=== PATIENT | male | born 1980 | race Caucasian/White ===

== ENCOUNTER 2018-11-18 18:51 | Observation (INO) | payer BC ==
[2018-11-18] MEDS ORDERED: Lidocaine 1% 20 ML MDV ONE (19:06)
[2018-11-18] MEDS ORDERED: Ondansetron ODT 8 MG TAB ONE (19:12)
[2018-11-18] MEDS ORDERED: Bacitracin 1 PK ONE (19:13)
[2018-11-18 19:46] LABS: #Basophils 0.1 thou/uL (0.0-0.2); #Eosinphils 0.2 thou/uL (0.0-0.7); #Lymphocytes 2.1 thou/uL (1.20-3.40); #Monocytes 1.1 thou/uL (0.11-0.59); %Basophils 0.9 % (0.0-1.0); %Eosinophils 1.6 % (0.0-10.0); %Lymphocytes 22.2 % (21.0-51.0); %Monocytes 11.3 % (0.0-10.0); %Neutrophils 63.9 % (42.0-75.0); Hemoglobin 17.4 g/dL (14.0-18.0); Mean Corpuscular HGB CONC 32.1 g/dL (32.0-36.0); Mean Corpuscular Hemoglobin 30.9 pg (27.0-31.0); Mean Corpuscular Volume 96.1 fL (78.0-98.0); Mean Platelet Volume 7.7 fL (7.4-10.4); Platelet Count 234 thou/uL (130-400); RBC Distribution Width 14.2 % (11.5-14.5); Red Blood Cell (RBC) Count 5.65 mill/uL (4.70-6.10); White Blood Cell (WBC) Count 9.5 thou/uL (4.8-10.8)
[2018-11-18 20:01] LABS: ALT (SGPT) 31 U/L (8-55); AST (SGOT) 22 U/L (5-34); Alkaline Phosphatase 53 U/L (40-150); Anion Gap 16 mmol/L (10-20); BUN (Urea Nitrogen) 13 mg/dL (8.9-20.6); Bilirubin, Total 0.5 mg/dL (0.2-1.2); Calc. Creatinine Clearance 0 mL/min (70-130); Calcium 9.1 mg/dL (7.8-10.44); Carbon Dioxide 21 mmol/L (22-29); Chloride 105 mmol/L (98-107); Estimated GFR-MDRD 79; Globulin 3.7 g/dL (2.4-3.5); Glucose 99 mg/dL (70-105); Potassium 4.2 mmol/L (3.5-5.1); Protein, Total 7.7 g/dL (6.0-8.3); Sodium 138 mmol/L (136-145)
[2018-11-18] MEDS ORDERED: Ondansetron ODT 4 MG TAB SL PRN (21:34)
[2018-11-18] MEDS ORDERED: HYDROcodone/Acetaminophen 5/325 mg Tablet PO PRN (21:34)
[2018-11-18] MEDS ORDERED: Ondansetron PF 4 MG/2 ML Vial IVP PRN (21:34)
[2018-11-18] MEDS ORDERED: Acetaminophen 325 MG TAB PO PRN (21:34)
[2018-11-18] MEDS: HYDROcodone/Acetaminophen 5/325 mg Tablet PO PRN (21:46)
[2018-11-18 23:23] VITALS: BMI 40.7
--- NOTE | 2018-11-18 23:42 | PDOC.FPRHP ---
- History of Present Illness Chief Complaint: L thigh rash History of Present Illness: Patient is a 37M with PMHx of asthma, hypogonadism presenting as a transfer from [facility] with L thigh rash onset 11/17. Patient reports that on 11/17 he saw that he had a rash on his left thigh. He states that it began to become painful and warm today so he went to the ED. He was hospitalized in September 2018 at [facility] for L thigh cellulitis in the same location, and he was told that it was MRSA. He was discharged on a PO doxycycline prescription. He has had 2 other hospitalizations in his past for MRSA, one 10 years ago 2/2 folliculitis, and another November 2017 2/2 folliculitis on his right chest. He states that he trims his body hair neat but not to the skin. ED Course: At [facility] ED: -I&D with no drainage, bacitracin ointment and bandage, 1g vanc at 1950 11/18, and 8mg zofran - Allergies/Adverse Reactions Allergies Allergy/AdvReac Type Severity Reaction Status Date / Time No Known Drug Allergies Allergy Verified 11/19/18 00:59 - Home Medications Medication Instructions Recorded Confirmed Type Albuterol Sulfate [Proair 1 puff BID 11/19/18 11/19/18 History Respiclick] Budesonide-Formoterol [Symbicort 2 puff DAILY 11/19/18 11/19/18 History 160-4.5] FLUoxetine HCl [Prozac] 1 cap DAILY 11/19/18 11/19/18 History Testosterone Cypionate 100 mg IM Q14D 11/19/18 11/19/18 History clonazePAM [Klonopin] 1 mg PO DAILY 11/19/18 11/19/18 History - History PMHx:asthma, hypogonadism PSHx: R shoulder sx, R inguinal hernia repair FHx: mom: Lupus, RA, passed of staph infection complication during hospitalization ( age 58) dad: glioblastoma (passed age 62) Social: occasional cigar use, social drinker, former marijuana use years ago - Review of Systems General: denies: fever/chills, weight/appetite/sleep changes Eyes: denies: eye pain, vision changes ENT: denies: nasal congestion, rhinorrhea Respiratory: denies: cough, congestion, shortness of breath Cardiovascular: denies: chest pain, edema Gastrointestinal: reports: vomiting (vomited 1x yesterday, patient says 2/2 overheating and resolved with hydration). denies: nausea, diarrhea Genitourinary: denies: incontinence, dysuria Skin: reports: rashes (L thigh rash) Musculoskeletal: denies: stiffness, swelling Neurological: denies: syncope, seizure Psychological: reports: anxiety (sees therapist) - Vital signs BP: [128/86] HR: [95] RR: [16] Tmax: [99.2] Pox: [95]% on [RA] Wt: [111kg] - Physical Exam Constitutional: NAD, awake, alert and oriented, well developed HEENT: normocephalic and atraumatic, EOMI Neck: supple, trachea midline Chest: no-tender to palpation, no lesions Heart: RRR, normal S1/S2 Lungs: CTAB, no respiratory distress, good air movement Abdomen: soft, non-tender, bowel sounds present Musculoskeletal: normal structure, normal tone Neurological: no focal deficit, normal sensation Skin: good turgor, capillary refill <2 seconds, other (4x5in erythematous non- draining skin rash on medial L thigh) Heme/Lymphatic: no unusual bruising or bleeding, no purpura Psychiatric: normal mood and affect, good judgment and insight, intact recent and remote memory FMR H&P: Results - Labs Result Diagrams: 11/19/18 05:56 11/18/18 19:40 Lab results: WBC 9.5 thou/uL (4.8-10.8) 11/18/18 19:40 Hgb 17.4 g/dL (14.0-18.0) 11/18/18 19:40 Hct 54.3 % (42.0-52.0) H 11/18/18 19:40 MCV 96.1 fL (78.0-98.0) 11/18/18 19:40 Plt Count 234 thou/uL (130-400) 11/18/18 19:40 Neutrophils % 63.9 % (42.0-75.0) 11/18/18 19:40 Sodium 138 mmol/L (136-145) 11/18/18 19:40 Potassium 4.2 mmol/L (3.5-5.1) 11/18/18 19:40 Chloride 105 mmol/L (98-107) 11/18/18 19:40 Carbon Dioxide 21 mmol/L (22-29) L 11/18/18 19:40 BUN 13 mg/dL (8.9-20.6) 11/18/18 19:40 Creatinine 1.05 mg/dL (0.7-1.3) 11/18/18 19:40 Glucose 99 mg/dL (70-105) 11/18/18 19:40 Calcium 9.1 mg/dL (7.8-10.44) 11/18/18 19:40 Total Bilirubin 0.5 mg/dL (0.2-1.2) 11/18/18 19:40 AST 22 U/L (5-34) 11/18/18 19:40 ALT 31 U/L (8-55) 11/18/18 19:40 Alkaline Phosphatase 53 U/L (40-150) 11/18/18 19:40 Serum Total Protein 7.7 g/dL (6.0-8.3) 11/18/18 19:40 Albumin 4.0 g/dL (3.5-5.0) 11/18/18 19:40 FMR H&P: A/P - Problem List (1) Cellulitis of left thigh Current Visit: Yes Status: Acute Code(s): L03.116 - CELLULITIS OF LEFT LOWER LIMB (2) Asthma Current Visit: Yes Status: Acute Code(s): J45.909 - UNSPECIFIED ASTHMA, UNCOMPLICATED (3) Hypogonadism in male Current Visit: Yes Status: Acute Code(s): E29.1 - TESTICULAR HYPOFUNCTION - Plan 37M with PMHx of asthma, hypogonadism, and multiple MRSA infections presents with L medial thigh cellulitis #L medial thigh cellulitis -WBC 9.5, wnl, continue to monitor -vss, low suspicion for sepsis at this time -started on IV vanc at [facility], continue -monitor Vanc troughs -vanc pharmacy to dose -Encourage PO intake #Asthma -continue home meds #hypogonadism -patient can take home testosterone after being d/c from hospital DVT proph: lovenox GI proph: pepcid Diet: regular Dispo: obs for IV abx, possible d/c tmrw with PO doxycycline or similar Code Status: Full Code FMR H&P: Upper Level - Plan Date/Time: 11/18/18 7811 I, Saurabh Mercer MD, have evaluated this patient and agree with findings/plan as outlined by international account manager resident. Pertinent changes/additions are listed here. Terrell Burgos is a 37 year old M with a PMH of hyperparathyroidism, asthma, and hx of multiple MRSA skin infections requiring hospitalizations who was transferred to [facility] from outside ER with a 1-2 day history of left inner thigh redness and pain. Patient has been admitted to outside hospital at least 2 times in the past couple years, last in September for 4 days, for MRSA related skin infections. He wanted to make sure he gets treated before it gets as bad as it was in the past. In the outside ER, I&D was attempted over an area of minimal fluctuance and only a small amount of blood was expressed, no pus. He was given Vanc 1 g and 8 mg zofran in the ED. His vitals were stable in the ED and he shows no signs of sepsis. WBC count was 9.5 and remainder of CBC and CMP were otherwise negative. Patient is being placed on obs/medical unit for cellulitis tx. Will continue vancomycin and zeb borders of cellulitis to monitor for progression. Low suspicion for sepsis, abscess or nec fasciitis at this time. Will continue to monitor and consider imaging of wound if pt worsens clinically. Pain control. Please see international account manager for full H&P, which I have reviewed and agree with. Addendum - Attending - Attending Attestation Date/Time: 11/19/18 0700 I personally evaluated the patient and discussed the management with Dr. Mercer and team on 11/18. I agree with the History, Examination, Assessment and Plan documented above with any addition or exceptions noted below. Area of cellulitis left thigh with no fluctuance, TTP, warm/erythematous/ edematous. Agree with vancomycin and transition to PO in the AM. No s/s of sepsis.
[2018-11-19] MEDS ORDERED: Senokot S 8.6-50 MG TAB PO PRN (00:08)
[2018-11-19] MEDS ORDERED: Vancomycin HCl 1 GM in Premix Bag 1 BAG IVPB SCH (00:15)
[2018-11-19] MEDS ORDERED: traZODone HCl 50 MG TAB PO PRN (00:52)
[2018-11-19] MEDS: HYDROcodone/Acetaminophen 5/325 mg Tablet PO PRN (04:21)
[2018-11-19 06:18] LABS: #Basophils 0.1 thou/uL (0.0-0.2); #Eosinphils 0.2 thou/uL (0.0-0.7); #Lymphocytes 2.3 thou/uL (1.20-3.40); #Monocytes 1.3 thou/uL (0.11-0.59); #Neutrophils 5.6 thou/uL (1.40-6.50); %Basophils 0.5 % (0.0-1.0); %Eosinophils 1.9 % (0.0-10.0); %Lymphocytes 24.7 % (21.0-51.0); %Monocytes 13.6 % (0.0-10.0); %Neutrophils 59.3 % (42.0-75.0); Hemoglobin 16.1 g/dL (14.0-18.0); Mean Corpuscular Hemoglobin 32.3 pg (27.0-31.0); Mean Corpuscular Volume 97.9 fL (78.0-98.0); Mean Platelet Volume 7.7 fL (7.4-10.4); Platelet Count 200 thou/uL (130-400); RBC Distribution Width 13.8 % (11.5-14.5); Red Blood Cell (RBC) Count 4.98 mill/uL (4.70-6.10); White Blood Cell (WBC) Count 9.4 thou/uL (4.8-10.8)
--- NOTE | 2018-11-19 06:26 | PDOC.FM ---
- Subjective Subjective: Pt is doing well w/o complaints. He remains with pain over Left Medial thigh but believes it is improving. - Objective Vital Signs & Weight: Vital Signs (12 hours) Temp Pulse Resp BP BP Pulse Ox 11/19/18 04:05 97.9 F 85 18 118/79 94 L 11/19/18 00:08 98.0 F 11/18/18 21:36 99.2 F 85 18 128/86 95 11/18/18 21:30 99.2 F 85 18 128/86 95 Weight Weight 111 kg I&O: 11/17/18 11/18/18 11/19/18 06:59 06:59 06:59 Intake Total 190 Balance 190 Result Diagrams: 11/19/18 05:56 11/18/18 19:40 Phys Exam - Physical Examination Constitutional: NAD HEENT: PERRLA Neck: no JVD, full ROM Respiratory: clear to auscultation bilateral Cardiovascular: RRR, no significant murmur Gastrointestinal: soft, non-tender, no distention Musculoskeletal: no edema, pulses present Psychiatric: normal affect, A&O x 3 -: Lesion on L medial thigh remains erythematous approx baseball size in circ Dx/Plan (1) Anxiety Code(s): F41.9 - ANXIETY DISORDER, UNSPECIFIED Status: Acute (2) Asthma Code(s): J45.909 - UNSPECIFIED ASTHMA, UNCOMPLICATED Status: Acute (3) Cellulitis of left thigh Code(s): L03.116 - CELLULITIS OF LEFT LOWER LIMB Status: Acute (4) Hypogonadism in male Code(s): E29.1 - TESTICULAR HYPOFUNCTION Status: Acute - Plan Plan: 37M with PMHx of asthma, hypogonadism, and multiple MRSA infections presents with L medial thigh cellulitis, erythema is receding with abx so will continue to monitor progression at this time. #L medial thigh cellulitis -WBC wnl, continue to monitor -vss, low suspicion for sepsis at this time -started on IV vanc at [facility], continue. Previous visit in September 2018 he required 3 days of vancomycin -monitor Vanc troughs -vanc pharmacy to dose -Encourage PO intake #Asthma -continue home meds #hypogonadism -patient can take home testosterone after being d/c from hospital #Anxiety -continue home meds # GERD - continue home meds DVT proph: lovenox GI proph: pepcid Diet: regular Dispo: obs for IV abx, possible d/c tmrw with PO doxycycline or similar Code Status: Full Code Addendum - Attending - Attending Attestation Date/Time: 11/19/18 1845 I personally evaluated the patient and discussed the management with Dr. Doran. I agree with the History, Examination, Assessment and Plan documented above with any addition or exceptions noted below. Continue to follow. Hopefully home tomorrow.
[2018-11-19] MEDS: Enoxaparin Sodium 40 MG/0.4 ML SYRINGE SC SCH (08:22)
[2018-11-19] MEDS: Famotidine 20 MG TAB PO SCH ×2 (08:22→20:05)
[2018-11-19] MEDS: Vancomycin HCl 1.75 GM in Sodium Chloride 0.9% 500 ML IVPB SCH ×2 (08:41→20:05)
[2018-11-19] MEDS ORDERED: SODIUM CHLORIDE 0.9% IVPB SCH (09:00)
[2018-11-19] MEDS ORDERED: VANCOMYCIN HCL IVPB SCH (09:00)
[2018-11-19] MEDS ORDERED: Acetaminophen 325 MG TAB PO PRN (12:06)
[2018-11-19] MEDS: Ibuprofen 800 MG TAB PO PRN (12:21)
[2018-11-19] MEDS: PROVENTIL INHALER 6.7 G (200 INHALATIONS) INH SCH (20:00)
[2018-11-19] MEDS: Mometasone/Formoterol 120 PUFF INHALER INH SCH (20:02)
[2018-11-20] MEDS: Ibuprofen 800 MG TAB PO PRN (02:51)
[2018-11-20] MEDS: PROVENTIL INHALER 6.7 G (200 INHALATIONS) INH SCH (06:48)
[2018-11-20] MEDS: Mometasone/Formoterol 120 PUFF INHALER INH SCH (06:50)
--- NOTE | 2018-11-20 06:50 | PDOC.FM ---
- Subjective Subjective: No complaints today - Objective Vital Signs & Weight: Vital Signs (12 hours) Temp Pulse Resp BP Pulse Ox 11/20/18 04:14 97.7 F 68 18 125/84 95 11/20/18 00:00 98.0 F 80 16 114/78 95 11/19/18 20:00 80 16 94 L 11/19/18 19:10 98.1 F 80 18 131/84 94 L Weight Weight 111 kg I&O: 11/18/18 11/19/18 11/20/18 06:59 06:59 06:59 Intake Total 890 2950 Balance 890 2950 Result Diagrams: 11/19/18 05:56 11/18/18 19:40 Phys Exam - Physical Examination HEENT: PERRLA, moist MMs Respiratory: clear to auscultation bilateral Cardiovascular: RRR Gastrointestinal: soft, no distention Musculoskeletal: no edema, pulses present Erythema on RUE medial thigh is decreasing in size, mild tenderness Dx/Plan (1) Anxiety Code(s): F41.9 - ANXIETY DISORDER, UNSPECIFIED Status: Acute (2) Asthma Code(s): J45.909 - UNSPECIFIED ASTHMA, UNCOMPLICATED Status: Acute (3) Cellulitis of left thigh Code(s): L03.116 - CELLULITIS OF LEFT LOWER LIMB Status: Acute (4) Hypogonadism in male Code(s): E29.1 - TESTICULAR HYPOFUNCTION Status: Acute - Plan Plan: Plan: 37M with PMHx of asthma, hypogonadism, and multiple MRSA infections presents with L medial thigh cellulitis, erythema is receding with abx so will discharge at this time. #L medial thigh cellulitis -d/c with bactrim - follow up if lesion persists. #Asthma -continue home meds #hypogonadism -patient can take home testosterone after being d/c from hospital #Anxiety -continue home meds # GERD - continue home meds DVT proph: lovenox GI proph: pepcid Diet: regular Dispo: obs for IV abx, possible d/c tmrw with PO doxycycline or similar Code Status: Full Code Addendum - Attending - Attending Attestation Date/Time: 11/20/18 1212 I personally evaluated the patient and discussed the management with Dr. Doran. I agree with the History, Examination, Assessment and Plan documented above with any addition or exceptions noted below.
[2018-11-20 08:17] LABS: Vancomycin, Trough 10.8 ug/mL
[2018-11-20] MEDS ORDERED: clonazePAM 1 MG TAB PO SCH (09:00)
[2018-11-20] MEDS ORDERED: FLUoxetine HCl 20 MG CAP PO SCH (09:00)
[2018-11-20] MEDS ORDERED: Vancomycin HCl 1.25 GM in Sodium Chloride 0.9% 250 ML 250 ML IVPB SCH (09:00)
[2018-11-20] MEDS: Famotidine 20 MG TAB PO SCH (09:12)
[2018-11-20] MEDS: Enoxaparin Sodium 40 MG/0.4 ML SYRINGE SC SCH (09:13)
[2018-11-20 11:59] VITALS: BP 119/80; TEMP 98
--- NOTE | 2018-11-21 10:42 | DIS ---
DATE OF ADMISSION: 11/18/2018 DATE OF DISCHARGE: 11/20/2018 RESIDENT: Cecil Doran DO ADMITTING ATTENDING: Torres Moya MD DISCHARGE ATTENDING: Joe Martinez MD CONSULTS: None. PROCEDURES: None. PRIMARY DIAGNOSIS: Left lower extremity cellulitis. SECONDARY DIAGNOSES: 1. Asthma. 2. Hypogonadism in male. 3. Anxiety. DISCHARGE MEDICATIONS: 1. Bactrim 400/80 tablets p.o. daily for 7 days. 2. Albuterol sulfate 1 puff b.i.d. p.r.n. 3. Symbicort two puffs daily. 4. Fluoxetine 20 mg p.o. daily. 5. Testosterone 100 mg IM q.14 days. 6. Klonopin 1 mg p.o. daily. DISCONTINUED MEDICATIONS: None. HISTORY OF PRESENT ILLNESS/HOSPITAL COURSE: The patient is a 37-year-old male, who presented with a 2-day history of rash on his left thigh. He states that the rash became painful and warm to touch, so he presented to the ED. He stated he has history of MRSA infection in the same region requiring hospitalization and vancomycin treatment. This was done at [facility]. The previous infection resolved as of September 2018, but came back on this admission. He does have two prior hospitalizations for MRSA secondary to folliculitis. In the ED, he was started on vancomycin. I and D was attempted but it was unsuccessful in alleviating any abscesses. Once he was admitted, he was found to have white blood cell count of 9.5. Vitals were within normal limits. There was no suspicion for sepsis at that time. We continued him on IV vancomycin. The cellulitis on his left medial thigh decreased in size the first day. We decided to keep him due to his previous history of MRSA infections and the lesion remained fairly erythematous. On the second day of admission, his lesion had regressed a considerate amount and remained erythematous. It was less tender to palpation. The patient's vital signs were stable. White blood cells remained within normal limits. I decided to discharge patient with p.o. Bactrim for 7 days. He was advised to follow up with [facility] as he is new to the area and does not have a family medicine physician. DISPOSITION: Stable. DISCHARGE INSTRUCTIONS: 1. Location: [facility]. 2. Diet: No restrictions. 3. Activity: No restrictions. 4. Followup: Followup in 1 week with [facility]. Job ID: [id number]
[2018-12-03] MEDS ORDERED: TESTOSTERONE CYPIONATE 100 MG IM SCH (09:00)
== END 2018-11-20 17:12 | disposition home or self-care (01) ==
LOC: SCSER 18:51 → T4-B 19:10
PROVIDERS: ADMIT Emergency Medicine; ATTEND Emergency Medicine
DX: L03.116 Cellulitis of left lower limb (principal); J45.909 Unspecified asthma, uncomplicated; E29.1 Testicular hypofunction; F41.9 Anxiety disorder, unspecified; K21.9 Gastro-esophageal reflux disease without esophagitis; F17.290 Nicotine dependence, other tobacco product, uncomplicated; Z79.899 Other long term (current) drug therapy
CPT/HCPCS: 10060; 36415; 80053; 80202; 84145; 85025; 87324; 87449; 96365; 96366; 96372; 96376; G0378; J1650; J2001; J3370; J7050

== ENCOUNTER 2019-05-31 19:30 | Outpatient (CLI) | payer BC | END 2019-05-31 19:31 | disposition home or self-care (01) | LOC: SLEEPLAB 19:30 | PROVIDERS: ATTEND Family Medicine | DX: G47.33 Obstructive sleep apnea (adult) (pediatric) (principal); E66.9 Obesity, unspecified; R53.83 Other fatigue; F41.9 Anxiety disorder, unspecified; K21.9 Gastro-esophageal reflux disease without esophagitis | CPT/HCPCS: 95811 ==